=== PATIENT | male | born 1935 | race Caucasian/White ===

== ENCOUNTER 2019-02-22 07:03 | Inpatient (IN) ==
[2019-02-16 13:48] LABS: Appearance,Urine CLEAR; Bilirubin,Urine NEG (NEG); Color,Urine YELLOW; Culture Indicated,Urine NO; Glucose,Urine (UA) NEGATIVE (NEG); Ketones,Urine NEG (NEG); Leukocyte Esterase,Urine NEG /uL (NEG); Nitrate,Urine NEG (NEG); Protein,Urine NEG (NEG); Specific Gravity,Urine 1.023 (1.000-1.035); Urine Blood NEG mg/dL (<0.03); Urobilinogen,Urine NEG (NEG)
[2019-02-16 14:28] LABS: Basophils # (Auto) 0 K/mcL (0.0-0.3); Basophils % (Auto) 0.2 % (0.0-2.0); Eosinophils # (Auto) 0 K/mcL (0.0-0.7); Eosinophils % (Auto) 0.1 % (0.0-7.0); Granulocytes % (Auto) 64.6 % (38.0-78.0); Hematocrit 38.4 % (41.0-55.0); Hemoglobin 12.8 g/dL (13.5-16.5); Lymphocytes # (Auto) 2.3 K/mcL (1.5-4.8); Lymphocytes % (Auto) 28.3 % (15.5-49.0); Mean Cell Volume 93.3 fL (80.0-100.0); Mean Corpuscular HGB Conc 33.3 g/dL (31.0-36.0); Mean Platelet Volume 7.8 fL (7.4-10.4); Monocytes # (Auto) 0.6 K/mcL (0.1-0.9); Monocytes % (Auto) 6.8 % (1.0-12.0); Platelet Count 100 K/mcL (140-440); RBC 4.12 M/mcL (4.50-5.90); Red Cell Distribution Width 15.4 % (11.5-14.5); WBC 8.3 K/mcL (4.5-11.0)
[2019-02-16 14:29] LABS: Blood Urea Nitrogen 22 mg/dl (8-23); Calcium 9.5 mg/dl (8.6-10.4); Carbon Dioxide 22 mmol/L (22-30); Chloride 103 mmol/L (96-108); Glomerular Filtration Rate 83; Glucose 173 mg/dL (70-105)
[2019-02-16 14:51] LABS: Estimated Average Glucose(eAG) 163 mg/dL; Hemoglobin A1C 7.3 % HGB (4.0-6.0)
[~2019-02-22 07:03] MED LIST: CELECOXIB 200 MG CAPSULE PO SCH; IPRATROPIUM/ALBUTEROL 3 ML AMPUL.NEB NEB PRN; PREGABALIN 75 MG CAPSULE PO SCH; SCOPOLAMINE 1 PATCH PATCH TOPICAL PRN; ceFAZolin 2 GM in DEXTROSE 5% IN WATER 50 ML IV SCH; oxyCODONE 10 MG TAB.ER.12H PO SCH
[2019-02-22 07:39] LABS: POC INR 1.3 (0.9-1.2); POC Pro Time 15.5 sec (11.9-14.5)
[2019-02-22] MEDS ORDERED: GLYCOPYRROLATE 0.2 MG/ML VIAL IV ONE (09:30)
[2019-02-22] MEDS ORDERED: LIDOCAINE HCL/PF 100 MG/5 ML SYRINGE IV ONE (09:30)
[2019-02-22] MEDS ORDERED: ROPIVACAINE HCL/PF 30 ML VIAL IJ ONE (09:30)
[2019-02-22] MEDS ORDERED: PHENYLEPHRINE 10 MG/ML VIAL IV ONE (09:30)
[2019-02-22] MEDS ORDERED: fentaNYL 100 MCG/2 ML VIAL IV ONE (09:30)
[2019-02-22] MEDS ORDERED: MIDAZOLAM 2 MG/2 ML VIAL IV ONE (09:30)
[2019-02-22] MEDS ORDERED: TRANEXAMIC ACID 1,000 MG/10 ML VIAL IV ONE ×2 (09:30→11:07)
[2019-02-22] MEDS ORDERED: KETAMINE 100 MG/ML ML IV ONE (09:30)
[2019-02-22] MEDS ORDERED: PROPOFOL 200 MG/20 ML VIAL IV ONE (09:30)
[2019-02-22] MEDS ORDERED: ONDANSETRON 4 MG/2 ML VIAL IV ONE (09:30)
[2019-02-22] MEDS ORDERED: fentaNYL 100 MCG/2 ML VIAL IV PRN (10:56)
[2019-02-22] MEDS ORDERED: IPRATROPIUM/ALBUTEROL 3 ML AMPUL.NEB NEB PRN (10:56)
[2019-02-22] MEDS ORDERED: METHOCARBAMOL 1,000 MG/10 ML VIAL IV PRN (10:56)
[2019-02-22] MEDS ORDERED: HYDROmorphone 2 MG/ML VIAL IV PRN (10:56)
[2019-02-22] MEDS ORDERED: ACETAMINOPHEN 1,000 MG/100 ML BOTTLE IV ONE (10:56)
[2019-02-22] MEDS ORDERED: ONDANSETRON 4 MG/2 ML VIAL IV PRN (10:56)
[2019-02-22] MEDS ORDERED: LACTATED RINGERS 1,000 ML IV SCH (11:00)
[2019-02-22] MEDS ORDERED: NITROGLYCERIN 0.4 MG TAB.SUBL SL PRN (11:06)
--- NOTE | 2019-02-22 11:06 | Brief Operative Note ---
Date of procedure: 02/22/19 Pre-op diagnosis: right hip osteoarthritis Post-op diagnosis: same Procedure: right total hip arthroplasty Grafts/Implants: Yes Anesthesia: GETA Complications: none Surgeon: Winston Dove Bronze Chaser: Kalli Loyd Estimated blood loss (cc): 600 Specimens Removed/Pathology: none sent Condition: stable Disposition: PACU
[2019-02-22] MEDS ORDERED: DEXTROSE 31 GM ORAL.SUSP PO PRN (11:07)
[2019-02-22] MEDS ORDERED: FLEETS ADULT ENEMA PR PRN (11:07)
[2019-02-22] MEDS ORDERED: MAGNESIUM HYDROXIDE 30 ML ORAL.SUSP PO PRN (11:07)
[2019-02-22] MEDS ORDERED: DEXTROSE 50% 50 ML VIAL IV PRN (11:07)
[2019-02-22] MEDS ORDERED: BISACODYL 10 MG SUPP.RECT PR PRN (11:07)
[2019-02-22] MEDS ORDERED: POLYETHYLENE GLYCOL 3350 17 GM PACKET PO PRN (11:07)
[2019-02-22] MEDS ORDERED: METHOCARBAMOL 750 MG TABLET PO PRN (11:07)
[2019-02-22] MEDS ORDERED: BENZOCAINE/MENTHOL 1 LOZENGE PO PRN (11:07)
[2019-02-22] MEDS ORDERED: ONDANSETRON 4 MG ODT TABLET SL PRN (11:07)
[2019-02-22] MEDS ORDERED: GENTAMICIN SULFATE 800 MG/20 ML VIAL IR ONE (11:08)
--- NOTE | 2019-02-22 11:34 | Operative Note ---
DATE OF OPERATION: 02/22/2019 PREOPERATIVE DIAGNOSIS: Degenerative joint disease, right hip. POSTOPERATIVE DIAGNOSIS: Degenerative joint disease, right hip. PROCEDURE: Right total hip arthroplasty. SURGEON: Reed Dove M.D. CONTROLLER [employer] SURGEON: Kalli Loyd PA-C. The PA's assistance was required for the safe and efficient completion of the entire case. This provider's expertise and technical skill were required throughout the case. The PA assisted with preoperative coordination, intraoperative retraction, wound closure, dressing and splint application, as well as postoperative documentation and care coordination. ANESTHESIA: Spinal with LMA assist. ESTIMATED BLOOD LOSS: 600 mL. COMPLICATIONS: None noted. SPECIMENS REMOVED: None. DRAINS: None. IMPLANTS: DePuy Thurman Hole Eliminator PS; DePuy Knox Gription acetabular shell, 58 mm diameter; DePuy Knox Altrx polyethylene acetabular liner, neutral 36 x 58; DePuy femoral stem Actis Duofix hip prosthesis cementless size 6, high-collar; DePuy Biolox delta ceramic femoral head +8.5, 36 mm diameter. INDICATIONS: The patient has had a longstanding history of worsening pain in the hip that has failed conservative treatment. Radiographs have confirmed advanced degenerative joint disease. After a long discussion about treatment options, the patient elected to proceed with a hip arthroplasty. The risks and benefits were discussed with the patient in detail including, but not limited to, the risks of anesthesia, problems with the heart or lungs related to anesthesia, infection, compromise or injury to the nerves and blood vessels, deep venous thrombosis, pulmonary embolism, pneumonia, continued pain after surgery, worsening pain or symptoms after surgery, swelling, loss of motion, instability, leg length discrepancy, and need for repeat surgery. DESCRIPTION OF PROCEDURE: The patient was seen in pre-anesthesia waiting room where all questions were answered and the correct side and site were identified and marked. The patient was then brought to the operating room and administered the anesthetic and given pre-operative antibiotics. A time-out was then called. The patient was placed in the lateral decubitus position with all prominences well-padded using the Jose frame and the extremity was prepped and draped in the usual sterile fashion. Anesthesia gave the patient 1 gm of tranexamic acid via an intravenous route. A standard posterior approach was made. We dissected through the skin and subcutaneous tissue to the deep fascia. The deep fascia was split in line with the incision and a Charnley retractor was placed. We exposed, tagged, and incised the short external rotators and piriformis tendon and retracted them posteriorly to help protect the sciatic nerve which was palpated throughout the case. We then performed a T-capsulotomy and tagged the capsule edges. Prior to dislocating the hip, we set a length and offset gauge from a Steinmann pin in the iliac wing to a ml on the greater trochanter. The hip was then dislocated and a femoral neck osteotomy was performed to the pre-surgical templated level off the lesser trochanter. The head was removed and sized. We next turned our attention to the acetabulum. Retractors were placed for optimal visualization. A complete labral excision was performed. The capsule was preserved for later closure. We began reaming using anatomic landmarks with the DePuy Knox acetabular system. We medialized the cup and reamed up to provide good fill and coverage of the trial. When the trial was stable and appropriately positioned with approximately 20 degrees of anteversion and 45 degrees of abduction, we impacted the DePuy Knox cup and placed a cancellous screw in the posterior-superior quadrant. Osteophytes were removed from around the shell. We placed the trial liner and turned our attention to the femur. We placed retractors for visualization, internally rotated the femur, and established intramedullary access. We broached using the DePuy Actis stem to a stable platform medial, lateral, and rotationally with the appropriate version. We then performed a calcar reaming off the broach. Trials were then placed and optimized for leg length and stability. We used the leg length and offset guide to confirm our trials. Best stability, length, and offset characteristics were obtained with these sizes. We removed all trials and impacted the polyethylene acetabular liner in a standard fashion after a thorough irrigation. We then impacted the femoral stem to its broached location and placed the head. Final reduction was performed. Again, good stability, leg length, and offset characteristics were noted. We irrigated with three liters of antibiotic saline. We closed the capsule with #2 FiberWire. We closed the fascia with a combination of #2 Stratafix and 0 Vicryl. We closed the subcutaneous tissue and skin in layers out to Dermabond on the skin. A sterile pressure dressing and abduction wedge was applied. All needle and sponge counts were correct. The patient was transferred to the recovery room in stable condition. SAGAR:cyril Job ID: [id number] Doc ID: [id number] Reed Dove MD
[2019-02-22] MEDS: MEPERIDINE 25 MG/ML SYRINGE IV PRN ×2 (11:53→12:04)
--- NOTE | 2019-02-22 12:17 | XRay Report ---
HISTORY: Postop right hip replacement FINDINGS: Patient has a newly inserted right total hip prosthesis. This is well-positioned and there is no acute fracture. There is an indwelling well-positioned left hip prosthesis. 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 There is also ankylosis of the right SI joint. The right inferior pubic ramus is deformed by an old healed fracture. IMPRESSION: Well-positioned right hip prosthesis Interpreted and Authenticated by: Reji Cortez 02/22/19
[2019-02-22] MEDS: 0.9 % SODIUM CHLORIDE 1,000 ML IV SCH ×2 (13:02→21:34)
[2019-02-22] MEDS: HYDROcodone/APAP 10/325MG TABLET PO PRN ×2 (13:02→19:54)
[2019-02-22] MEDS: INSULIN LISPRO 1 UNIT/0.01 ML UNIT SQ SCH ×6 (14:34→22:12)
[2019-02-22] MEDS: 0.9 % SODIUM CHLORIDE 10 ML SYRINGE IV SCH ×2 (14:36→22:19)
[2019-02-22] MEDS: ceFAZolin 1 GM VIAL IV SCH (17:28)
[2019-02-22] MEDS: metFORMIN 500 MG TABLET PO SCH (17:58)
[2019-02-22] MEDS: ONDANSETRON 4 MG/2 ML VIAL IV PRN (19:55)
[2019-02-22] MEDS ORDERED: SENNOSIDES 1 TABLET PO SCH (21:00)
[2019-02-22] MEDS ORDERED: ATORVASTATIN 20 MG TABLET PO SCH (21:00)
[2019-02-22] MEDS: ASPIRIN 325 MG ENTERIC COATED TABLET PO SCH (22:11)
[2019-02-22] MEDS: DOCUSATE SODIUM 100 MG CAPSULE PO SCH (22:11)
[2019-02-23] MEDS: ceFAZolin 1 GM VIAL IV SCH (01:56)
[2019-02-23] MEDS: ONDANSETRON 4 MG/2 ML VIAL IV PRN ×3 (02:03→17:26)
[2019-02-23] MEDS: HYDROcodone/APAP 10/325MG TABLET PO PRN ×3 (05:13→16:45)
[2019-02-23] MEDS: 0.9 % SODIUM CHLORIDE 1,000 ML IV SCH ×3 (05:14→20:47)
[2019-02-23] MEDS: 0.9 % SODIUM CHLORIDE 10 ML SYRINGE IV SCH ×3 (06:30→20:48)
[2019-02-23 07:14] LABS: Hematocrit 19.9 % (41.0-55.0); Hemoglobin 6.7 g/dL (13.5-16.5)
[2019-02-23] MEDS: INSULIN LISPRO 1 UNIT/0.01 ML UNIT SQ SCH ×4 (07:31→21:03)
[2019-02-23] MEDS ORDERED: SCOPOLAMINE 1 PATCH PATCH TOPICAL ONE (07:39)
[2019-02-23] MEDS ORDERED: FUROSEMIDE 20 MG/2 ML VIAL IV SCH ×2 (07:40→08:51)
[2019-02-23] MEDS ORDERED: 0.9 % SODIUM CHLORIDE 250 ML IV SCH ×2 (07:45→08:51)
--- NOTE | 2019-02-23 07:50 | Orthopedic Progress Note ---
Subjective Patient information: Note initiated : 02/23/19 at 7:48 am Service Date, if different from initiated Date: [] Patient: Zay Coates 83 y/o M admitted on 02/22/19 for Right Total Hip Arthroplasty Posterior . Chief Complaint: [] Interval history: doing ok but trouble voiding and difficulty ambulating Objective Vital signs: Vital Signs Temp Pulse Resp BP Pulse Ox 02/23/19 03:29 99.1 F H 74 20 115/60 93 02/22/19 23:15 98.3 F 62 16 101/62 94 02/22/19 19:53 98.6 F 101 H 20 118/68 96 02/22/19 16:00 96.2 F L 50 L 18 101/55 02/22/19 15:30 96.4 F L 51 L 18 102/59 94 02/22/19 14:00 52 L 18 106/61 93 02/22/19 13:20 52 L 16 110/56 95 02/22/19 13:05 52 L 16 116/60 96 02/22/19 12:50 52 L 16 120/64 94 02/22/19 12:35 96.2 F L 52 L 16 110/62 94 02/22/19 12:19 97.5 F 54 L 14 127/62 95 02/22/19 12:10 97.3 F 56 L 16 138/62 97 02/22/19 12:00 56 L 16 160/78 94 02/22/19 11:50 58 L 14 123/58 100 02/22/19 11:41 63 14 116/59 100 02/22/19 11:36 55 L 16 100/55 100 02/22/19 11:31 96.4 F L 56 L 14 107/46 100 Intake and Output 02/22/19 02/23/19 02/23/19 21:59 05:59 13:59 Intake Total 1840 1718 Output Total 100 1125 Balance 1740 593 Intake: IV 1000 958 Sodium Chloride 0.9% 1,000 ml @ 1000 958 125 mls/hr IV .Q8H [facility] Rx#: [id number] Oral 840 760 Output: Urine Catheter Amount 375 Straight 375 Void Amount 100 Emesis 750 Other: Meal Dinner Percent of Meal Consumed 25% Urine Appearance Straight Clear Urine Color Dark Yellow Straight Starke # Unmeasured Emesis 1 1 Weight 220 lb Intake & Output: Intake & Output 02/22/19 02/23/19 02/23/19 21:59 05:59 13:59 Intake Total 1840 1718 Output Total 100 1125 Balance 1740 593 Weight 220 lb Intake: IV 1000 958 Sodium Chloride 0.9% 1,000 ml @ 1000 958 125 mls/hr IV .Q8H [facility] Rx#: [id number] Oral 840 760 Output: Urine Catheter Amount 375 Straight 375 Void Amount 100 Emesis 750 Other: Meal Dinner Percent of Meal Consumed 25% Urine Appearance Straight Clear Urine Color Dark Yellow Straight Starke # Unmeasured Emesis 1 1 Incision: Yes healing Incision clean and dry: Yes Dressing: Yes clean, Yes dry, Yes intact Weight bearing status: full Neurological exam IM: Yes abnormal gait, Yes alert, Yes oriented X3, Yes motor sensory intact, Yes neurovascular intact Extremities exam IM: No calf tenderness, Yes Foot pink and warm, Yes neurovascular intact - Labs CBC & BMP: 02/23/19 04:20 02/16/19 11:37 Labs: Orthopedic Labs 02/22/19 02/22/19 07:34 07:32 POC PT 15.5 H POC INR 1.3 H APTT 38 H 02/23/19 02/16/19 04:20 11:37 Hgb 6.7 L* 12.8 L Hct 19.9 L* 38.4 L Assessment and Plan (1) Hip osteoarthritis pod 1 s/p right ronald anemic- transfuse 2 u prbc's hospitalist consult pt pain control dvt prophylaxis Status: Acute
--- NOTE | 2019-02-23 07:51 | Discharge Summary ---
Ortho Discharge - ESTUARDO - Patient Instructions Diet: Regular Diet Activity: ambulate with assistive device, weight bearing as tolerated Total Hip Protocol: Follow activity instructions as provided by Physical Therapy. Dressing Care: May shower in 2 days - Problem Maintenance (1) Hip osteoarthritis Status: Acute - Follow Up Plan Follow Up Appointments: Kalli Loyd PA-C [Physician Historiography Professor] - 03/09/19 11:00 am Disposition: Xfer SNF Prognosis: Good Rehab Potential: Good I certify that the patient requires SNF services: Yes Overall status at discharge: patient is progressing back to baseline
[2019-02-23] MEDS ORDERED: FERROUS SULFATE 325 MG TABLET PO SCH (08:00)
--- NOTE | 2019-02-23 08:28 | Internal Medicine Consult Note ---
Medical - CN: HPI - Data of Consult Primary Care Provider: Kalli Loyd - Consult Narrative Reason for consult: Blood loss anemia History of present illness: Mr. Coates is a 83 year old M with history of DM type II/CAD/CABG who was admitted for elective right hip replacement. Patient underwent right hip arthroplasty on 02/[address] Dove. Postoperatively patient was doing well until he was found to have a hemoglobin dropped to 6.7 early this morning. Patient was started on 2 units transfusion and subsequently hospitalist service was consulted for management of postoperative anemia/prior medical issues At the time of evaluation patient is alert and oriented. He is accompanied with his . He denies significant postoperative pain or swelling around surgery site. He denies diaphoresis lightheadedness except for a brief episode early this morning. He has been ambulating with physical therapy and able to transfer out to chair. He is tolerating diet. Denies shortness of breath, vision changes, diarrhea, fatigue. He is otherwise fairly healthy 83-year-old gentleman who was functional at baseline lives at [place] with his . He is retired teacher. He follows up with primary care physician Dr. erica Leahy cardiology. He denies NSAID intake. He denies history of bleeding or clotting disorder. He is currently on antiplatelets but not on anticoagulation. He denies active symptoms or concerns. Review of systems A 10 point review of system was performed and is negative except as discussed above CC: Winston Dove Medical - CN: [facility] Medical history: History of total right knee replacement (Acute) 03/07/16 Dr. 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 Moran History of coronary artery stent placement (Chronic) 2009 x2 History of prostate surgery (Chronic 10/17/13) Cyber laser- vaporization of the prostate History of total hip replacement (Chronic 05/15/15) Dr. Dove Family History Mother Cardiac disease Arthritis Diabetes mellitus Disorder of thyroid Father Malignant neoplasm of prostate Social History marital status: occupational status: retired occupation: Teacher smoking status: Never smoker alcohol intake frequency: a few times a month substance use type: does not use Medical - CN: Meds Home Medications Medication Instructions Recorded Confirmed Type aspirin 81 mg tablet 81 mg PO DAILY 06/13/15 02/22/19 History OneTouch Delica Lancets 30 gauge See Dose Instructions .ROUTE 09/17/16 10/07/16 Rx .MEDSUPPLY #100 each NS OneTouch Verio See Dose Instructions .ROUTE 09/17/16 10/07/16 Rx .MEDSUPPLY #100 each NS nitroglycerin 0.4 mg sublingual 0.4 mg SUBLINGUAL Q5-15M PRN #20 10/28/16 02/16/19 Rx tablet tab blood-glucose meter See Dose Instructions .ROUTE 12/01/16 Rx .MEDSUPPLY #1 each Ferrous Sulfate 325 mg PO QAC 02/16/19 02/22/19 History Metoprolol Succinate [Toprol Xl] 50 mg PO DAILY 02/16/19 02/22/19 History Rosuvastatin Calcium [Crestor] 20 mg PO DAILY 02/16/19 02/22/19 History metFORMIN [Glucophage] 500 mg PO BIDCC 02/16/19 02/22/19 History Aspirin [Ecotrin] 81 mg PO BID #60 tab.ec 02/23/19 Rx HYDROcodone/APAP 10/325MG [[place] 1 - 2 tab PO Q4H PRN #60 tab 02/23/19 Rx 10-325Mg] Allergies Allergy/AdvReac Type Severity Reaction Status Date / Time No Known Drug Allergies Allergy Verified 10/07/16 11:14 Medical - CN: Exam - Constitutional Vitals: Temp Pulse Resp BP Pulse Ox 98.3 F 79 20 110/64 90 02/23/19 08:00 02/23/19 08:00 02/23/19 08:00 02/23/19 08:00 02/23/19 08:00 General appearance: no acute distress Exam: Alert oriented No anxiety BMI 33.5 Head normocephalic Oral cavity dry No ear nose discharge Mild subconjunctival pallor Neck no lymphadenopathy S1-S2 ESM grade 2 midline sternotomy incisions from prior CABG Diminished breath sounds bases but clear to auscultation Abdomen soft nontender Right lower extremity hip surgical site no significant swelling/erythema/brui sing or tenderness. Normal passive R OM No cyanosis clubbing or lymphedema Skin no suspicious lesion except for pallor psych alert cooperative Neuro nonfocal Medical - CN: Result - Labs CBC & Chem 7: 02/23/19 08:58 02/23/19 08:58 Labs: Short CBC 02/23/19 Range/Units 04:20 Hgb 6.7 L* (13.5-16.5) g/dL Hct 19.9 L* (41.0-55.0) % Medical - CN: A/P (1) Acute blood loss anemia Status: Acute Assessment and plan: * Acute blood loss anemia-postoperative blood loss. Hemoglobin down from 12- 6.7. 2 units PRBC/IV iron sucrose infusion/every 4 H&H. Transfer to monitored unit. Close hemodynamic watch. As needed transfusions * Postop hypotension-continue close monitoring. Transfer to telemetry. Cryst alloids and transfusion as indicated * Right total hip arthroplasty-postop care managed by orthopedics * History of hypertension-continue metoprolol once systolics over 130s * DM type II continue sliding-scale insulin/metformin if renal function stable, start sitagliptin * Postoperative pain management as per orthopedics * Hyperlipidemia continue statin * Full code * Plan * Transfer to telemetry * IV iron sucrose * 2 units PRBC transfusion * Prior medical condition management on home meds * 4 hourly hemoglobin check
[2019-02-23] MEDS: ASPIRIN 325 MG ENTERIC COATED TABLET PO SCH ×3 (08:50→20:46)
[2019-02-23] MEDS: metFORMIN 500 MG TABLET PO SCH ×2 (08:50→17:26)
[2019-02-23] MEDS: DOCUSATE SODIUM 100 MG CAPSULE PO SCH ×3 (08:50→20:46)
[2019-02-23] MEDS ORDERED: POLYETHYLENE GLYCOL 3350 17 GM PACKET PO PRN (08:51)
[2019-02-23] MEDS ORDERED: BENZOCAINE/MENTHOL 1 LOZENGE PO PRN (08:51)
[2019-02-23] MEDS ORDERED: DEXTROSE 31 GM ORAL.SUSP PO PRN (08:51)
[2019-02-23] MEDS ORDERED: MAGNESIUM HYDROXIDE 30 ML ORAL.SUSP PO PRN (08:51)
[2019-02-23] MEDS ORDERED: BISACODYL 10 MG SUPP.RECT PR PRN (08:51)
[2019-02-23] MEDS ORDERED: FLEETS ADULT ENEMA PR PRN (08:51)
[2019-02-23] MEDS ORDERED: DEXTROSE 50% 50 ML VIAL IV PRN (08:51)
[2019-02-23] MEDS ORDERED: NITROGLYCERIN 0.4 MG TAB.SUBL SL PRN (08:51)
[2019-02-23] MEDS ORDERED: METHOCARBAMOL 750 MG TABLET PO PRN (08:51)
[2019-02-23] MEDS ORDERED: sitaGLIPtin 100 MG TABLET PO SCH (09:00)
[2019-02-23] MEDS ORDERED: METOPROLOL SUCCINATE 50 MG TAB.XL.24H PO SCH (09:00)
[2019-02-23 09:32] LABS: Hematocrit 33.1 % (41.0-55.0); Hemoglobin 11.3 g/dL (13.5-16.5); Mean Cell Volume 93.8 fL (80.0-100.0); Mean Corpuscular HGB Conc 34.1 g/dL (31.0-36.0); Mean Platelet Volume 7.2 fL (7.4-10.4); Platelet Count 104 K/mcL (140-440); RBC 3.53 M/mcL (4.50-5.90); Red Cell Distribution Width 15.5 % (11.5-14.5); WBC 12.8 K/mcL (4.5-11.0)
[2019-02-23 09:49] LABS: ALT/SGPT 14 U/l (0-40); AST/SGOT 27 U/l (0-37); Albumin 3.9 gm/dL (3.2-5.2); Albumin/Globulin Ratio 1.3 (1.0-2.3); Alkaline Phosphatase 71 U/L (39-117); Bilirubin,Direct 0.3 mg/dL (0.0-0.3); Bilirubin,Total 1.1 mg/dL (0.0-1.0); Blood Urea Nitrogen 15 mg/dl (8-23); Calcium 8.3 mg/dl (8.6-10.4); Carbon Dioxide 21 mmol/L (22-30); Chloride 101 mmol/L (96-108); Glomerular Filtration Rate 79; Glucose 155 mg/dL (70-105); Lactate Dehydrogenase 225 U/L (94-250); Phosphorous 2.6 mg/dL (2.7-4.5); Triglycerides 89 mg/dl (<150); Uric Acid 3.9 mg/dL (2.5-8.0)
[2019-02-23 10:06] LABS: Band Neutrophils % 18 % (0-10); Lymphocytes % 11 % (15-49); Monocytes % (Manual) 7 % (1-12); Platelet Estimate DECREASED (NORMAL); RBC Morphology NORMAL (NORMAL); Segmented Neutrophils % 64 % (38-78)
[2019-02-23] MEDS ORDERED: IRON SUCROSE COMPLEX 100 MG/5 ML VIAL IV ONE (10:26)
[2019-02-23] MEDS ORDERED: IRON SUCROSE COMPLEX 400 MG in 0.9 % SODIUM CHLORIDE 250 ML IV SCH (11:00)
[2019-02-23 11:54] LABS: Hematocrit 30.3 % (41.0-55.0); Hemoglobin 10.2 g/dL (13.5-16.5)
[2019-02-23] MEDS: SENNOSIDES 1 TABLET PO SCH (20:46)
[2019-02-23] MEDS: ATORVASTATIN 20 MG TABLET PO SCH (20:46)
[2019-02-24] MEDS: 0.9 % SODIUM CHLORIDE 1,000 ML IV SCH ×3 (01:14→19:46)
[2019-02-24] MEDS: HYDROcodone/APAP 10/325MG TABLET PO PRN ×3 (02:48→20:46)
[2019-02-24] MEDS: ONDANSETRON 4 MG/2 ML VIAL IV PRN (02:48)
[2019-02-24] MEDS ORDERED: oxyCODONE/APAP 5/325MG TABLET PO PRN (06:56)
[2019-02-24 06:59] LABS: Hematocrit 28.8 % (41.0-55.0); Hemoglobin 9.8 g/dL (13.5-16.5)
--- NOTE | 2019-02-24 07:00 | Orthopedic Progress Note ---
Subjective Patient information: Note initiated : 02/24/19 at 6:57 am Service Date, if different from initiated Date: [] Patient: Zay Coates 83 y/o M admitted on 02/22/19 for Right Total Hip Arthroplasty Posterior . Chief Complaint: [POD #2 s/p right ESTUARDO Doing well except for urinary retention. Has history of BPH. Is on Flomax. Several attempts at garcia placement have failed. Pain is 7/8 and patient threw up last night. Denies CP, SOB, numbness, tingling, calf pain.] Objective Vital signs: Vital Signs Temp Pulse Resp BP Pulse Ox 02/24/19 03:35 98.4 F 77 16 112/60 92 02/24/19 01:40 98.4 F 78 20 122/62 91 02/23/19 22:41 98.4 F 70 14 108/57 92 02/23/19 18:42 98 F 77 20 108/62 90 02/23/19 16:00 98.2 F 74 18 131/72 90 02/23/19 13:17 106/61 02/23/19 12:00 98.4 F 75 18 90 02/23/19 08:00 98.3 F 79 20 110/64 90 Intake and Output 02/23/19 02/24/19 02/24/19 21:59 05:59 13:59 Intake Total 2000 500 Output Total 1200 75 Balance 800 425 Intake: IV 1000 Sodium Chloride 0.9% 1,000 ml @ 1000 125 mls/hr IV .Q8H [facility] Rx#: [id number] Oral 1000 500 Output: Urine Catheter Amount 600 Straight 600 Void Amount 100 75 Emesis 500 Other: Meal Dinner 1 slice toast Percent of Meal Consumed 25% 100% Urine Appearance Straight Clear Urine Color Dark Poppy Straight Light Poppy Urine Odor Straight Strong Weight 221 lb 9.6 oz Intake & Output: Intake & Output 02/23/19 02/24/19 02/24/19 21:59 05:59 13:59 Intake Total 2000 500 Output Total 1200 75 Balance 800 425 Weight 221 lb 9.6 oz Intake: IV 1000 Sodium Chloride 0.9% 1,000 ml @ 1000 125 mls/hr IV .Q8H [facility] Rx#: [id number] Oral 1000 500 Output: Urine Catheter Amount 600 Straight 600 Void Amount 100 75 Emesis 500 Other: Meal Dinner 1 slice toast Percent of Meal Consumed 25% 100% Urine Appearance Straight Clear Urine Color Dark Poppy Straight Light Poppy Urine Odor Straight Strong Incision: Yes healing, No draining, No red, No swollen, No inflamed, Yes clean and dry Incision clean and dry: Yes Dressing: Yes clean, Yes dry, Yes intact Weight bearing status: as tolerated Neurological exam IM: Yes alert, Yes oriented X3, Yes motor sensory intact, Yes neurovascular intact Extremities exam IM: Yes Foot pink and warm, Yes neurovascular intact - Periperhal Pulses Peripheral pulses: 2+: dorsalis pedis (L), dorsalis pedis (R), posterior tibiali s (L), posterior tibialis (R) - Labs CBC & BMP: 02/23/19 11:20 02/23/19 08:58 Labs: Orthopedic Labs 02/22/19 02/22/19 07:34 07:32 POC PT 15.5 H POC INR 1.3 H APTT 38 H 02/24/19 02/23/19 02/23/19 04:25 11:20 08:58 Hgb Pending 10.2 L 11.3 L Hct Pending 30.3 L 33.1 L 02/23/19 02/16/19 04:20 11:37 Hgb 6.7 L* 12.8 L Hct 19.9 L* 38.4 L Assessment and Plan (1) Hip osteoarthritis POD #2 s/p right ESTUARDO: -protonix for GERD -consult to [facility] for urinary retention -pain control: d/c Hydrocodone and switch to Percocet to see if tolerated better. Zofran prn -ambulate as tolerate -d/c planning to SNF tomorrow Status: Acute
[2019-02-24] MEDS: ONDANSETRON 4 MG ODT TABLET SL PRN ×2 (07:01→20:45)
[2019-02-24] MEDS: 0.9 % SODIUM CHLORIDE 10 ML SYRINGE IV SCH ×3 (07:07→20:47)
[2019-02-24] MEDS: PANTOPRAZOLE 40 MG TABLET PO SCH (07:20)
[2019-02-24] MEDS: INSULIN LISPRO 1 UNIT/0.01 ML UNIT SQ SCH ×4 (07:22→20:44)
[2019-02-24] MEDS: FERROUS SULFATE 325 MG TABLET PO SCH (09:08)
[2019-02-24] MEDS: sitaGLIPtin 100 MG TABLET PO SCH (09:08)
[2019-02-24] MEDS: metFORMIN 500 MG TABLET PO SCH ×2 (09:09→17:17)
[2019-02-24] MEDS: DOCUSATE SODIUM 100 MG CAPSULE PO SCH ×2 (09:09→20:46)
[2019-02-24] MEDS: METOPROLOL SUCCINATE 50 MG TAB.XL.24H PO SCH (09:09)
[2019-02-24] MEDS: ASPIRIN 325 MG ENTERIC COATED TABLET PO SCH ×2 (09:09→20:46)
--- NOTE | 2019-02-24 09:50 | Internal Med Progress Note ---
Medical - PN: Subj Patient information: Note initiated : 02/24/19 at 9:45 am Service Date, if different from initiated Date: [] Patient: Zay Coates 83 y/o M admitted on 02/22/19 for Right Total Hip Arthroplasty Posterior . Chief Complaint: [] Interval history: Mr. Coates is a 83 year old M with history of DM type II/CAD/CABG who was admitted for elective right hip replacement. Patient underwent right hip arthroplasty on 02/[address] Dove. Postoperatively patient was doing well until he was found to have a hemoglobin dropped to 6.7 early this morning. Patient was started on 2 units transfusion and subsequently hospitalist service was consulted for management of postoperative anemia/prior medical issues At the time of evaluation patient is alert and oriented. He is accompanied with his . He denies significant postoperative pain or swelling around surgery site. He denies diaphoresis lightheadedness except for a brief episode early this morning. He has been ambulating with physical therapy and able to transfer out to chair. He is tolerating diet. Denies shortness of breath, vision changes, diarrhea, fatigue. He is otherwise fairly healthy 83-year-old gentleman who was functional at baseline lives at [place] with his . He is retired teacher. He follows up with primary care physician Dr. erica Leahy cardiology. He denies NSAID intake. He denies history of bleeding or clotting disorder. He is currently on antiplatelets but not on anticoagulation. He denies active symptoms or concerns. 02/24-patient complains of distended abdomen and difficulty urinating. History of BPH. Attempted Yao's catheter twice by nurses and failed. Urology consulted for catheterization. Blood transfusion canceled in light of lab error showing low hemoglobin. Patient otherwise stable the postoperative phase. No significant postop pain. Family at bedside. Anticipate discharge to SNF in 24 hours. - Constitutional Vitals: Vital Signs Temp Pulse Resp BP Pulse Ox 98.3 F 80 16 117/62 93 02/24/19 08:00 02/24/19 08:00 02/24/19 08:00 02/24/19 08:00 02/24/19 08:00 Period Temp Pulse Resp BP Sys/Aaron Pulse Ox Last 24 Hr 98 F-98.4 F 70-80 14-20 106-131/57-72 90-93 Intake and Output 02/23/19 02/24/19 02/24/19 21:59 05:59 13:59 Intake Total 1999 500 Output Total 1200 75 Balance 800 425 Weight 221 lb 9.6 oz Intake & Output: Intake & Output 02/23/19 02/24/19 02/24/19 21:59 05:59 13:59 Intake Total 1999 500 Output Total 1200 75 Balance 800 425 Weight 221 lb 9.6 oz Intake: IV 1000 Sodium Chloride 0.9% 1,000 ml @ 1000 125 mls/hr IV .Q8H [facility] Rx#: [id number] Oral 1000 500 Output: Urine Catheter Amount 600 Straight 600 Void Amount 100 75 Emesis 500 Other: Meal Dinner 1 slice toast Percent of Meal Consumed 25% 100% Urine Appearance Straight Clear Urine Color Dark Poppy Straight Light Poppy Urine Odor Straight Strong General appearance: no acute distress Exam: Distended abdomen Nonlabored breathing Minimal anxiety Medical - PN: Obj Da - Labs CBC & Chem 7: 02/24/19 04:25 02/23/19 08:58 Labs: Abnormal Lab Results 02/24/19 02/23/19 02/23/19 04:25 11:20 08:58 WBC RBC Hgb 9.8 L 10.2 L Hct 28.8 L 30.3 L RDW Plt Count MPV Band Neutrophils % Lymphocytes % Platelet Estimate POC PT POC INR APTT Carbon Dioxide 21 L Glucose 155 H Calcium 8.3 L Phosphorus 2.6 L Total Bilirubin 1.1 H 02/23/19 02/23/19 02/22/19 08:58 04:20 07:34 WBC 12.8 H RBC 3.53 L Hgb 11.3 L 6.7 L* Hct 33.1 L 19.9 L* RDW 15.5 H Plt Count 104 L MPV 7.2 L Band Neutrophils % 18 H Lymphocytes % 11 L Platelet Estimate Decreased A POC PT 15.5 H POC INR 1.3 H APTT Carbon Dioxide Glucose Calcium Phosphorus Total Bilirubin 02/22/19 07:32 WBC RBC Hgb Hct RDW Plt Count MPV Band Neutrophils % Lymphocytes % Platelet Estimate POC PT POC INR APTT 38 H Carbon Dioxide Glucose Calcium Phosphorus Total Bilirubin Meds: Medications Hydrocodone Bitart/Acetaminophen ([place] 10/325mg) 0 tab PO Q4HP PRN PRN Reason: PAIN LEVEL 3-6 Last Admin: 02/24/19 07:01 Dose: 2 tab Documented by: Aspirin (Ecotrin) 325 mg PO BID [facility] Last Admin: 02/24/19 09:09 Dose: 325 mg Documented by: Atorvastatin Calcium (Lipitor) 40 mg PO HS [facility] Last Admin: 02/23/19 20:46 Dose: 40 mg Documented by: Bisacodyl (Dulcolax) 10 mg [place] Q2-3DAYS PRN PRN Reason: Constipation Dextrose (Dextrose 50%) 0 ml IV UD PRN PRN Reason: Hypoglycemia Diagnostic Test (Pha) (Accu-Chek) 1 each FS [facility] Last Admin: 02/24/19 07:20 Dose: 1 each Documented by: Docusate Sodium (Colace) 100 mg PO BID [facility] Last Admin: 02/24/19 09:09 Dose: 100 mg Documented by: Ferrous Sulfate (Ferrous Sulfate) 325 mg PO [facility] Last Admin: 02/24/19 09:08 Dose: 325 mg Documented by: Glucose (Insta-Glucose) 15 gm PO PRN PRN PRN Reason: Hypoglycemia Sodium Chloride (Sodium Chloride 0.9%) 1,000 mls @ 125 mls/hr IV .Q8H [facility] Last Admin: 02/24/19 01:14 Dose: 125 mls/hr Documented by: Insulin Human Lispro (Humalog) 0 unit SQ [facility]; Protocol Last Admin: 02/24/19 07:22 Dose: 2 units Documented by: Magnesium Hydroxide (Milk Of Magnesia) 30 ml PO BIDP PRN PRN Reason: Constipation [facility] Last Admin: 02/24/19 09:09 Dose: 500 mg Documented by: Methocarbamol (Robaxin) 750 mg PO Q6HP PRN PRN Reason: Muscle Spasm Last Admin: 02/23/19 16:45 Dose: 750 mg Documented by: Metoprolol Succinate (Toprol Xl) 50 mg PO DAILY [facility] Last Admin: 02/24/19 09:09 Dose: Not Given Documented by: Morphine Sulfate (Morphine) 0 mg IV Q1HP PRN PRN Reason: PAIN LEVEL > 6 Last Admin: 02/23/19 21:04 Dose: 2 mg Documented by: Nitroglycerin (Nitrostat) 0.4 mg SL Q5M PRN PRN Reason: chest pain Ondansetron HCl (Zofran) 4 mg IV Q4HP PRN PRN Reason: Nausea And Vomiting Last Admin: 02/24/19 02:48 Dose: 4 mg Documented by: Ondansetron HCl (Zofran Odt) 4 mg SL Q4HP PRN PRN Reason: Nausea And Vomiting Last Admin: 02/24/19 07:01 Dose: 4 mg Documented by: Oxycodone/Acetaminophen (Percocet 5-325 Mg) 1 tab PO Q4-6HP PRN PRN Reason: PAIN LEVEL 3-6 Pantoprazole Sodium (Protonix) 40 mg PO QAMAC [facility] Last Admin: 02/24/19 07:20 Dose: 40 mg Documented by: Polyethylene Glycol (Miralax) 17 gm PO DAILYP PRN PRN Reason: Constipation Senna (Senokot) 2 tab PO HS [facility] Last Admin: 02/23/19 20:46 Dose: 2 tab Documented by: Sitagliptin Phosphate (Januvia) 100 mg PO DAILY [facility] Last Admin: 02/24/19 09:08 Dose: 100 mg Documented by: Sodium Biphosphate/Sodium Phosphate (Fleets Adult) 1 dose [place] Q3-4DAYS PRN PRN Reason: Constipation Sodium Chloride (Saline Flush) 10 ml IV Q8 [facility] Last Admin: 02/24/19 07:07 Dose: Not Given Documented by: Throat Lozenges (Cepacol) 1 lozenge PO PRN PRN PRN Reason: Sore Throat Medical - PN: A/P - Time Spent With Patient Total time spent is greater than 50% in coordination of care (as documented) at patient's floor/unit and/or counseling patient: 15 - 24 minutes (1) Acute blood loss anemia Status: Acute Assessment and plan: * Postop [id number] and resolved. * Urinary retention-urology consulted for Yao's insertion * Postop anemia-IV iron infusion * Right total hip arthroplasty-postop care ongoing per orthopedics, PT OT * History of hypertension-stable on metoprolol * DM type II continue sliding-scale insulin, metformin/sitagliptin. A.m. blood sugar 155 * Postoperative pain management well controlled * Hyperlipidemia continue statin * Prophylaxis on twice daily aspirin per orthopedics * Full code Plan * Urology consult * IV iron sucrose * Prior medical condition management and home meds * No further recommendations from hospitalist service Current Visit: Yes Medical - PN: Qual - VTE Deep Vein Thrombosis/Pulmonary Embolism Present on Admission: No
--- NOTE | 2019-02-24 11:17 | General Surgery Progress Note ---
Surgical - Auxillary Note - Subjective Patient Information: Note initiated : 02/24/19 at 11:15 am Service Date, if different from initiated Date: [] Patient: Zay Coates 83 y/o M admitted on 02/22/19 for Right Total Hip Arthroplasty Posterior . Chief Complaint: [] full consult dictatated. garcia placed. start flomax. f/u as outpatient
--- NOTE | 2019-02-24 11:39 | Consultation ---
DATE OF CONSULTATION: 02/24/2019 REQUESTING PHYSICIAN: Giovanny Chamberlain MD. HISTORY OF PRESENT ILLNESS: The patient is an 83-year-old gentleman who recently had right hip surgery. Postoperatively, he could not urinate, and the nurses tried four times to place a catheter. I was contacted and was able to place a catheter without difficulty. The patient does have a history of BPH. He has undergone a photovaporization with [employer] approximately 5 years ago. He is on no medications for his prostate. He states that the surgery lasted about a year and then has started to have problems. He has more frequency and urgency and does not really feel like he empties his bladder. He has a decreased force of stream. Again, he is on no medication. He presents now for evaluation. PAST MEDICAL HISTORY: Please see dictation from Dr. Chamberlain on 02/23/2019. PAST SURGICAL HISTORY: Colonoscopy, coronary artery stent placement, bilateral hip replacements. FAMILY HISTORY: Cardiac disease. Father with prostate cancer. SOCIAL HISTORY: , retired teacher, does not smoke. CURRENT MEDICATIONS: 1. Nitroglycerin as needed. 2. Metoprolol. 3. Crestor. 4. Glucophage. 5. Ecotrin. ALLERGIES: No known allergies. REVIEW OF SYSTEMS: Again, please see Dr. Chamberlain's dictation. PHYSICAL EXAMINATION: GENERAL: This is a pleasant gentleman in slight distress. VITAL SIGNS: As listed per nurse's notes. NECK: Supple. Trachea is midline. HEART: Regular rate and rhythm. LUNGS: Clear to auscultation. ABDOMEN: Soft, positive distended bladder. No masses are felt. GENITOURINARY: Normal male phallus, circumcised. Meatus at the end of his penis. No discharge. Scrotum was without lesion. No hydrocele, no varicocele. Testicles normal size and consistency. Prostate is 45 grams, smooth, no nodules. Seminal vesicles are without enlargement. Good sphincter tone. No inner rectal masses. IMPRESSION: Urinary retention postoperatively. I was able to place a 16-Dutch Yao catheter without difficulty. He drained about 600 mL of urine and is feeling much better. I would keep the catheter in and start him on Flomax. He is going to a care center for rehabilitation. They can take out the catheter in about a week. We will then follow up in the office and see how he is doing. If there is a problem, he can give me a call. MARSHALL:cyril Job ID: [id number] Doc ID: [id number] Tino Amor MD
[2019-02-24] MEDS: ATORVASTATIN 20 MG TABLET PO SCH (20:46)
[2019-02-24] MEDS: SENNOSIDES 1 TABLET PO SCH (20:46)
[2019-02-24] MEDS ORDERED: TAMSULOSIN 0.4 MG CAPSULE PO SCH (21:00)
[2019-02-25] MEDS: 0.9 % SODIUM CHLORIDE 1,000 ML IV SCH ×2 (03:40→08:32)
[2019-02-25 05:43] LABS: Hemoglobin 9.4 g/dL (13.5-16.5)
[2019-02-25] MEDS: 0.9 % SODIUM CHLORIDE 10 ML SYRINGE IV SCH (05:49)
[2019-02-25] MEDS: INSULIN LISPRO 1 UNIT/0.01 ML UNIT SQ SCH ×2 (07:05→11:27)
[2019-02-25] MEDS: PANTOPRAZOLE 40 MG TABLET PO SCH (07:05)
--- NOTE | 2019-02-25 07:20 | Orthopedic Progress Note ---
Subjective Patient information: Note initiated : 02/25/19 at 7:19 am Service Date, if different from initiated Date: [] Patient: Zay Coates 83 y/o M admitted on 02/22/19 for Right Total Hip Arthroplasty Posterior . Chief Complaint: [] Interval history: doing well. feeling better Objective Vital signs: Vital Signs Temp Pulse Resp BP Pulse Ox 02/25/19 03:41 97.7 F 76 16 118/64 94 02/24/19 22:37 98.2 F 77 16 112/60 92 02/24/19 18:50 99.1 F H 86 14 114/61 94 02/24/19 16:00 97.4 F 78 16 105/64 92 02/24/19 12:00 97.0 F 83 16 107/65 94 02/24/19 08:00 98.3 F 80 16 117/62 93 Intake and Output 02/24/19 02/25/19 02/25/19 21:59 05:59 13:59 Intake Total 240 400 Output Total 800 800 Balance -560 -400 Intake: Oral 240 400 Output: Urine Catheter Amount 800 800 Other: Meal Breakfast Percent of Meal Consumed 75% Feeding Ability Independent Urine Appearance Clear Uretheral (Yao) Clear Urine Color Dark Yellow Uretheral (Yao) Dark Yellow Weight 224 lb 3.2 oz Intake & Output: Intake & Output 02/24/19 02/25/19 02/25/19 21:59 05:59 13:59 Intake Total 240 400 Output Total 800 800 Balance -560 -400 Weight 224 lb 3.2 oz Intake: Oral 240 400 Output: Urine Catheter Amount 800 800 Other: Meal Breakfast Percent of Meal Consumed 75% Feeding Ability Independent Urine Appearance Clear Uretheral (Yao) Clear Urine Color Dark Yellow Uretheral (Yao) Dark Yellow Incision: Yes healing Incision clean and dry: Yes Dressing: Yes clean, Yes dry, Yes intact Weight bearing status: full Neurological exam IM: Yes abnormal gait, Yes alert, Yes oriented X3, Yes motor sensory intact, Yes neurovascular intact Extremities exam IM: No calf tenderness, Yes Foot pink and warm, Yes neurovascular intact - Labs CBC & BMP: 02/25/19 04:00 02/23/19 08:58 Labs: Orthopedic Labs 02/22/19 02/22/19 07:34 07:32 POC PT 15.5 H POC INR 1.3 H APTT 38 H 02/25/19 02/24/19 02/23/19 04:00 04:25 11:20 Hgb 9.4 L 9.8 L 10.2 L Hct 27.0 L 28.8 L 30.3 L 02/23/19 02/23/19 02/16/19 08:58 04:20 11:37 Hgb 11.3 L 6.7 L* 12.8 L Hct 33.1 L 19.9 L* 38.4 L Assessment and Plan (1) Hip osteoarthritis pod 3 s/p right [facility] today pt pain control dvt prophylaxis Status: Acute
[2019-02-25] MEDS: sitaGLIPtin 100 MG TABLET PO SCH (08:31)
[2019-02-25] MEDS: ASPIRIN 325 MG ENTERIC COATED TABLET PO SCH (08:31)
[2019-02-25] MEDS: metFORMIN 500 MG TABLET PO SCH (08:31)
[2019-02-25] MEDS: HYDROcodone/APAP 10/325MG TABLET PO PRN (08:31)
[2019-02-25] MEDS: METOPROLOL SUCCINATE 50 MG TAB.XL.24H PO SCH (08:31)
[2019-02-25] MEDS: DOCUSATE SODIUM 100 MG CAPSULE PO SCH (08:31)
[2019-02-25] MEDS: FERROUS SULFATE 325 MG TABLET PO SCH (08:31)
--- NOTE | 2019-02-25 09:43 | Internal Med Progress Note ---
Medical - PN: Subj Patient information: Note initiated : 02/25/19 at 9:40 am Service Date, if different from initiated Date: [] Patient: Zay Coates 83 y/o M admitted on 02/22/19 for Right Total Hip Arthroplasty Posterior . Chief Complaint: [] Interval history: Mr. Coates is a 83 year old M with history of DM type II/CAD/CABG who was admitted for elective right hip replacement. Patient underwent right hip arthroplasty on 02/[address] Dove. Postoperatively patient was doing well until he was found to have a hemoglobin dropped to 6.7 early this morning. Patient was started on 2 units transfusion and subsequently hospitalist service was consulted for management of postoperative anemia/prior medical issues At the time of evaluation patient is alert and oriented. He is accompanied with his . He denies significant postoperative pain or swelling around surgery site. He denies diaphoresis lightheadedness except for a brief episode early this morning. He has been ambulating with physical therapy and able to transfer out to chair. He is tolerating diet. Denies shortness of breath, vision changes, diarrhea, fatigue. 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 erica Leahy cardiology. He denies NSAID intake. He denies history of bleeding or clotting disorder. He is currently on antiplatelets but not on anticoagulation. He denies active symptoms or concerns. 02/24-patient complains of distended abdomen and difficulty urinating. History of BPH. Attempted Yao's catheter twice by nurses and failed. Urology consulted for catheterization. Blood transfusion canceled in light of lab error showing low hemoglobin. Patient otherwise stable the postoperative phase. No significant postop pain. Family at bedside. Anticipate discharge to SNF in 24 hours. 02/25-patient doing well. Yao's catheter in place. No overnight fever chills. No concerns per nursing staff. Will follow-up with urology/orthopedics as outpatient. - Constitutional Vitals: Vital Signs Temp Pulse Resp BP Pulse Ox 98 F 76 20 119/70 94 02/25/19 07:21 02/25/19 07:00 02/25/19 07:21 02/25/19 07:21 02/25/19 07:21 Period Temp Pulse Resp BP Sys/Aaron Pulse Ox Last 24 Hr 97.0 F-99.1 F 76-86 14-20 105-119/60-70 92-94 Intake and Output 02/24/19 02/25/19 02/25/19 21:59 05:59 13:59 Intake Total 240 400 480 Output Total 800 800 Balance -560 -400 480 Weight 224 lb 3.2 oz Intake & Output: Intake & Output 02/24/19 02/25/19 02/25/19 21:59 05:59 13:59 Intake Total 240 400 480 Output Total 800 800 Balance -560 -400 480 Weight 224 lb 3.2 oz Intake: Oral 240 400 480 Output: Urine Catheter Amount 800 800 Other: Meal Breakfast Breakfast Percent of Meal Consumed 75% 100% Feeding Ability Independent Independent Urine Appearance Clear Uretheral (Yao) Clear Clear Urine Color Dark Yellow Uretheral (Yao) Dark Yellow Dark Yellow Urine Odor Uretheral (Yao) Normal General appearance: no acute distress Exam: Yao draining clear urine No significant postoperative site pain or swelling Nonlabored breathing Medical - PN: Obj Da - Labs CBC & Chem 7: 02/25/19 04:00 02/23/19 08:58 Labs: Abnormal Lab Results 02/25/19 02/24/19 02/23/19 04:00 04:25 11:20 WBC RBC Hgb 9.4 L 9.8 L 10.2 L Hct 27.0 L 28.8 L 30.3 L RDW Plt Count MPV Band Neutrophils % Lymphocytes % Platelet Estimate Carbon Dioxide Glucose Calcium Phosphorus Total Bilirubin 02/23/19 02/23/19 02/23/19 08:58 08:58 04:20 WBC 12.8 H RBC 3.53 L Hgb 11.3 L 6.7 L* Hct 33.1 L 19.9 L* RDW 15.5 H Plt Count 104 L MPV 7.2 L Band Neutrophils % 18 H Lymphocytes % 11 L Platelet Estimate Decreased A Carbon Dioxide 21 L Glucose 155 H Calcium 8.3 L Phosphorus 2.6 L Total Bilirubin 1.1 H Meds: Medications Hydrocodone Bitart/Acetaminophen ([place] 10/325mg) 0 tab PO Q4HP PRN PRN Reason: PAIN LEVEL 3-6 Last Admin: 02/25/19 08:31 Dose: 2 tab Documented by: Aspirin (Ecotrin) 325 mg PO BID [facility] Last Admin: 02/25/19 08:31 Dose: 325 mg Documented by: Atorvastatin Calcium (Lipitor) 40 mg PO HS [facility] Last Admin: 02/24/19 20:46 Dose: 40 mg Documented by: Bisacodyl (Dulcolax) 10 mg [place] Q2-3DAYS PRN PRN Reason: Constipation Dextrose (Dextrose 50%) 0 ml IV UD PRN PRN Reason: Hypoglycemia Diagnostic Test (Pha) (Accu-Chek) 1 each FS [facility] Last Admin: 02/25/19 07:05 Dose: 1 each Documented by: Docusate Sodium (Colace) 100 mg PO BID [facility] Last Admin: 02/25/19 08:31 Dose: 100 mg Documented by: Ferrous Sulfate (Ferrous Sulfate) 325 mg PO [facility] Last Admin: 02/25/19 08:31 Dose: 325 mg Documented by: Glucose (Insta-Glucose) 15 gm PO PRN PRN PRN Reason: Hypoglycemia Sodium Chloride (Sodium Chloride 0.9%) 1,000 mls @ 125 mls/hr IV .Q8H [facility] Last Admin: 02/25/19 08:32 Dose: Not Given Documented by: Insulin Human Lispro (Humalog) 0 unit SQ [facility]; Protocol Last Admin: 02/25/19 07:05 Dose: 2 units Documented by: Magnesium Hydroxide (Milk Of Magnesia) 30 ml PO BIDP PRN PRN Reason: Constipation [facility] Last Admin: 02/25/19 08:31 Dose: 500 mg Documented by: Methocarbamol (Robaxin) 750 mg PO Q6HP PRN PRN Reason: Muscle Spasm Last Admin: 02/23/19 16:45 Dose: 750 mg Documented by: Metoprolol Succinate (Toprol Xl) 50 mg PO DAILY [facility] Last Admin: 02/25/19 08:31 Dose: 50 mg Documented by: Morphine Sulfate (Morphine) 0 mg IV Q1HP PRN PRN Reason: PAIN LEVEL > 6 Last Admin: 02/23/19 21:04 Dose: 2 mg Documented by: Nitroglycerin (Nitrostat) 0.4 mg SL Q5M PRN PRN Reason: chest pain Ondansetron HCl (Zofran) 4 mg IV Q4HP PRN PRN Reason: Nausea And Vomiting Last Admin: 02/24/19 02:48 Dose: 4 mg Documented by: Ondansetron HCl (Zofran Odt) 4 mg SL Q4HP PRN PRN Reason: Nausea And Vomiting Last Admin: 02/24/19 20:45 Dose: 4 mg Documented by: Oxycodone/Acetaminophen (Percocet 5-325 Mg) 1 tab PO Q4-6HP PRN PRN Reason: PAIN LEVEL 3-6 Pantoprazole Sodium (Protonix) 40 mg PO QAMAC [facility] Last Admin: 02/25/19 07:05 Dose: 40 mg Documented by: Polyethylene Glycol (Miralax) 17 gm PO DAILYP PRN PRN Reason: Constipation Senna (Senokot) 2 tab PO [facility] Last Admin: 02/24/19 20:46 Dose: 2 tab Documented by: Sitagliptin Phosphate (Januvia) 100 mg PO DAILY [facility] Last Admin: 02/25/19 08:31 Dose: 100 mg Documented by: Sodium Biphosphate/Sodium Phosphate (Fleets Adult) 1 dose [place] Q3-4DAYS PRN PRN Reason: Constipation Sodium Chloride (Saline Flush) 10 ml IV Q8 [facility] Last Admin: 02/25/19 05:49 Dose: 10 ml Documented by: Tamsulosin HCl (Flomax) 0.4 mg PO [facility] Last Admin: 02/24/19 20:46 Dose: 0.4 mg Documented by: Throat Lozenges (Cepacol) 1 lozenge PO PRN PRN PRN Reason: Sore Throat Medical - PN: A/P - Time Spent With Patient Total time spent is greater than 50% in coordination of care (as documented) at patient's floor/unit and/or counseling patient: 15 - 24 minutes (1) Acute blood loss anemia Status: Acute Assessment and plan: * Urinary retention-status post Yao's catheter placement by urology. Patient will follow-up urology as outpatient * Postop anemia-status post IV iron infusion * Postop [id number]. Resolved * Right total hip arthroplasty-managed per orthopedics. Likely discharge today with outpatient orthopedic follow-up * History of hypertension-stable on metoprolol * DM type II continue sliding-scale insulin, metformin/sitagliptin. Blood sugars at goal * Postoperative pain management well controlled * Hyperlipidemia continue statin * Prophylaxis on twice daily aspirin per orthopedics * Full code Plan * No further recommendations from hospitalist service * Outpatient urology follow-up on discharge * Prior medical condition management and home meds Current Visit: Yes Medical - PN: Qual - VTE Deep Vein Thrombosis/Pulmonary Embolism Present on Admission: No
== END 2019-02-25 11:45 | DRG 470 ==
LOC: MEDSUR 07:03
PROVIDERS: ADMIT Orthopaedic Surgery Sports Medicine; ATTEND Orthopaedic Surgery Sports Medicine

== ENCOUNTER 2024-03-02 15:01 | Inpatient (IN) ==
[2024-03-02] MEDS ORDERED: IOPAMIDOL 100 ML BOTTLE IV ONE (15:02)
[2024-03-02] MEDS: ONDANSETRON 4 MG/2 ML VIAL IV ONE (15:54)
[2024-03-02] MEDS: 0.9 % SODIUM CHLORIDE 1,000 ML IV ONE (15:54)
[2024-03-02] MEDS: morphine 2 MG/ML VIAL IV PRN (16:09)
[2024-03-02] MEDS: ASPIRIN 81 MG TAB.CHEW CHEWED ONE (16:12)
[2024-03-02 16:28] LABS: Basophils # (Auto) 0.01 K/mcL (0.00-0.30); Basophils % (Auto) 0.1 % (0.0-2.0); Eosinophils # (Auto) 0.01 K/mcL (0.00-0.70); Eosinophils % (Auto) 0.1 % (0.0-7.0); Hematocrit 33.6 % (40.1-51.0); Hemoglobin 10.8 g/dL (13.7-17.5); Lymphocytes # (Auto) 2.61 K/mcL (1.50-4.80); Mean Cell Volume 93.3 fL (80.0-100.0); Mean Corpuscular HGB Conc 32.1 g/dL (31.0-36.0); Mean Platelet Volume 9.5 fL (8.8-12.5); Monocytes # (Auto) 0.54 K/mcL (0.10-0.90); Monocytes % (Auto) 6.4 % (1.0-12.0); Platelet Count 75 K/mcL (140-440); Red Cell Distribution Width 15.4 % (11.5-14.5); WBC 8.4 K/mcL (4.5-11.0)
[2024-03-02 16:31] LABS: ALT/SGPT 32 U/L (<40); AST/SGOT 47 U/L (<40); Albumin 4.2 gm/dL (3.2-5.2); Albumin/Globulin Ratio 1.2 (1.0-2.3); Alkaline Phosphatase 106 U/L (39-117); Bilirubin,Total 0.6 mg/dL (0.1-1.0); Blood Urea Nitrogen 20 mg/dL (8-23); Calcium 9.4 mg/dL (8.6-10.4); Carbon Dioxide 22 mmol/L (22-30); Chloride 103 mmol/L (96-108); Globulin 3.4 gm/dL (2.2-3.7); Glomerular Filtration Rate 85; Glucose 147 mg/dL (70-105); Potassium 4.1 mmol/L (3.3-5.1); Sodium 138 mmol/L (133-145)
[2024-03-02 18:25] LABS: Appearance,Urine Clear (Clear); Bacteria,Urine 0 /hpf (0); Bilirubin,Urine Negative (Negative); Color,Urine Yellow; Glucose,Urine (UA) Negative (Negative); Ketones,Urine Negative (Negative); Leukocyte Esterase,Urine Negative /uL (Negative); Nitrate,Urine Negative (Negative); PH,Urine 5.5 (5.0-9.0); Protein,Urine Negative (Negative); Urine Blood Negative ery/mcL (Negative); Urine RBC 0 /hpf (0-3); Urine Squamous Epithelial Cell 0 /hpf (0-4); Urine WBC 0 /hpf (0-4); Urobilinogen,Urine Normal
[2024-03-02] MEDS ORDERED: DEXTROSE 31 GM ORAL.SUSP PO PRN (20:29)
[2024-03-02] MEDS ORDERED: DEXTROSE 50% 50 ML VIAL IV PRN (20:29)
[2024-03-02] MEDS: PIPERACILLIN SODIUM/TAZOBACTAM 3.375 GM in DEXTROSE 5% IN WATER 100 ML IV SCH (21:19)
[2024-03-02] MEDS: INSULIN LISPRO 1 UNIT/0.01 ML UNIT SQ SCH (22:09)
[2024-03-02] MEDS: 0.9 % SODIUM CHLORIDE 1,000 ML IV SCH (23:54)
[2024-03-03 07:01] LABS: Basophils # (Auto) 0.01 K/mcL (0.00-0.30); Basophils % (Auto) 0.1 % (0.0-2.0); Eosinophils # (Auto) 0.01 K/mcL (0.00-0.70); Eosinophils % (Auto) 0.1 % (0.0-7.0); Hematocrit 31.7 % (40.1-51.0); Lymphocytes # (Auto) 1.51 K/mcL (1.50-4.80); Lymphocytes % (Auto) 21.2 % (15.5-49.0); Mean Cell Volume 95.5 fL (80.0-100.0); Mean Corpuscular HGB Conc 31.5 g/dL (31.0-36.0); Mean Platelet Volume 9.9 fL (8.8-12.5); Monocytes # (Auto) 0.49 K/mcL (0.10-0.90); Monocytes % (Auto) 6.9 % (1.0-12.0); Neutrophils % (Auto) 71.1 % (38.0-78.0); Platelet Count 69 K/mcL (140-440); RBC 3.32 M/mcL (4.63-6.08); Red Cell Distribution Width 15.4 % (11.5-14.5); WBC 7.1 K/mcL (4.5-11.0)
[2024-03-03 07:06] LABS: ALT/SGPT 26 U/L (<40); AST/SGOT 38 U/L (<40); Albumin 3.7 gm/dL (3.2-5.2); Albumin/Globulin Ratio 1.2 (1.0-2.3); Alkaline Phosphatase 93 U/L (39-117); Bilirubin,Direct 0.3 mg/dL (<0.3); Bilirubin,Total 0.6 mg/dL (0.1-1.0); Blood Urea Nitrogen 16 mg/dL (8-23); Calcium 8.7 mg/dL (8.6-10.4); Carbon Dioxide 23 mmol/L (22-30); Chloride 106 mmol/L (96-108); Glomerular Filtration Rate 90; Glucose 77 mg/dL (70-105); Lactate Dehydrogenase 179 U/L (135-225); Potassium 3.9 mmol/L (3.3-5.1); Sodium 138 mmol/L (133-145); Triglycerides 73 mg/dL (<150); Uric Acid 2.9 mg/dL (2.5-8.0)
[2024-03-04 07:09] LABS: ALT/SGPT 26 U/L (<40); AST/SGOT 37 U/L (<40); Albumin 3.6 gm/dL (3.2-5.2); Albumin/Globulin Ratio 1.2 (1.0-2.3); Alkaline Phosphatase 88 U/L (39-117); Bilirubin,Direct 0.3 mg/dL (<0.3); Bilirubin,Total 0.7 mg/dL (0.1-1.0); Blood Urea Nitrogen 11 mg/dL (8-23); Calcium 8.7 mg/dL (8.6-10.4); Carbon Dioxide 23 mmol/L (22-30); Chloride 108 mmol/L (96-108); Globulin 2.9 gm/dL (2.2-3.7); Glomerular Filtration Rate 90; Glucose 97 mg/dL (70-105); Lactate Dehydrogenase 151 U/L (135-225); Phosphorous 3.2 mg/dL (2.5-4.5); Potassium 3.9 mmol/L (3.3-5.1); Sodium 141 mmol/L (133-145); Triglycerides 78 mg/dL (<150); Uric Acid 2.1 mg/dL (2.5-8.0)
[2024-03-04 07:11] LABS: Basophils # (Auto) 0 K/mcL (0.00-0.30); Basophils % (Auto) 0 % (0.0-2.0); Eosinophils # (Auto) 0.01 K/mcL (0.00-0.70); Eosinophils % (Auto) 0.3 % (0.0-7.0); Hematocrit 30.5 % (40.1-51.0); Hemoglobin 9.7 g/dL (13.7-17.5); Lymphocytes # (Auto) 1.37 K/mcL (1.50-4.80); Lymphocytes % (Auto) 38.1 % (15.5-49.0); Mean Cell Volume 94.7 fL (80.0-100.0); Mean Corpuscular HGB Conc 31.8 g/dL (31.0-36.0); Mean Platelet Volume 9.9 fL (8.8-12.5); Monocytes # (Auto) 0.25 K/mcL (0.10-0.90); Monocytes % (Auto) 6.9 % (1.0-12.0); Neutrophils % (Auto) 54.1 % (38.0-78.0); Platelet Count 59 K/mcL (140-440); RBC 3.22 M/mcL (4.63-6.08); Red Cell Distribution Width 15.4 % (11.5-14.5); WBC 3.6 K/mcL (4.5-11.0)
[2024-03-04] MEDS ORDERED: SCOPOLAMINE 1 PATCH PATCH TOPICAL PRN (11:00)
[2024-03-04] MEDS ORDERED: IPRATROPIUM/ALBUTEROL 3 ML AMPUL.NEB NEB PRN ×2 (11:00→13:06)
[2024-03-04] MEDS ORDERED: ONDANSETRON 4 MG/2 ML VIAL ONE (11:07)
[2024-03-04] MEDS ORDERED: GLYCOPYRROLATE 0.2 MG/ML VIAL IV ONE (11:07)
[2024-03-04] MEDS ORDERED: DEXAMETHASONE 10 MG/ML VIAL ONE (11:07)
[2024-03-04] MEDS ORDERED: fentaNYL 100 MCG/2 ML VIAL ONE (11:07)
[2024-03-04] MEDS ORDERED: SUGAMMADEX SODIUM 200 MG/2 ML VIAL IV ONE (11:07)
[2024-03-04] MEDS ORDERED: PROPOFOL 200 MG/20 ML VIAL IV ONE (11:07)
[2024-03-04] MEDS ORDERED: ROCURONIUM 10 MG/ML ML IV ONE (11:11)
[2024-03-04] MEDS ORDERED: KETAMINE 50 MG/ML Syringe IV ONE (12:18)
[2024-03-04] MEDS ORDERED: MAGNESIUM SULFATE 2 GM/50 ML BAG IV ONE (12:47)
[2024-03-04] MEDS ORDERED: HYDROmorphone 0.5 MG/0.5 ML SYRINGE ONE (13:19)
[2024-03-04] MEDS: ACETAMINOPHEN 1,000 MG/100 ML BAG IV ONE (13:47)
[2024-03-04] MEDS: fentaNYL 100 MCG/2 ML VIAL IV PRN (13:55)
[2024-03-04] MEDS: LACTATED RINGERS 1,000 ML IV SCH (14:39)
[2024-03-04] MEDS: morphine 2 MG/ML VIAL IV PRN (17:18)
[2024-03-04] MEDS: POLYETHYLENE GLYCOL 3350 17 GM PACKET PO PRN (19:14)
[2024-03-05 12:26] LABS: Basophils # (Auto) 0.01 K/mcL (0.00-0.30); Basophils % (Auto) 0.1 % (0.0-2.0); Eosinophils # (Auto) 0 K/mcL (0.00-0.70); Eosinophils % (Auto) 0 % (0.0-7.0); Hematocrit 30.5 % (40.1-51.0); Hemoglobin 9.9 g/dL (13.7-17.5); Lymphocytes # (Auto) 0.74 K/mcL (1.50-4.80); Lymphocytes % (Auto) 7.1 % (15.5-49.0); Mean Cell Volume 93.3 fL (80.0-100.0); Mean Corpuscular HGB Conc 32.5 g/dL (31.0-36.0); Mean Platelet Volume 9.4 fL (8.8-12.5); Monocytes # (Auto) 0.69 K/mcL (0.10-0.90); Monocytes % (Auto) 6.6 % (1.0-12.0); Neutrophils % (Auto) 85.7 % (38.0-78.0); Platelet Count 74 K/mcL (140-440); RBC 3.27 M/mcL (4.63-6.08); Red Cell Distribution Width 15.1 % (11.5-14.5); WBC 10.4 K/mcL (4.5-11.0)
[2024-03-05 12:44] LABS: ALT/SGPT 31 U/L (<40); AST/SGOT 47 U/L (<40); Albumin 3.9 gm/dL (3.2-5.2); Albumin/Globulin Ratio 1.3 (1.0-2.3); Alkaline Phosphatase 90 U/L (39-117); Bilirubin,Direct 0.3 mg/dL (<0.3); Bilirubin,Total 0.9 mg/dL (0.1-1.0); Blood Urea Nitrogen 11 mg/dL (8-23); Calcium 8.9 mg/dL (8.6-10.4); Carbon Dioxide 24 mmol/L (22-30); Chloride 102 mmol/L (96-108); Globulin 3.1 gm/dL (2.2-3.7); Glomerular Filtration Rate 85; Glucose 161 mg/dL (70-105); Lactate Dehydrogenase 198 U/L (135-225); Phosphorous 2.6 mg/dL (2.5-4.5); Potassium 3.8 mmol/L (3.3-5.1); Sodium 136 mmol/L (133-145); Triglycerides 87 mg/dL (<150); Uric Acid 1.7 mg/dL (2.5-8.0)
[2024-03-05] MEDS: oxyCODONE IR 5 MG TABLET PO PRN (13:55)
[2024-03-05] MEDS: OMEPRAZOLE 20 MG CAPSULE PO SCH (13:55)
[2024-03-05] MEDS: ONDANSETRON 4 MG/2 ML VIAL IV PRN (23:44)
[2024-03-06] MEDS: METOCLOPRAMIDE 10 MG/2 ML VIAL IV SCH (08:21)
[2024-03-06] MEDS: MAGNESIUM HYDROXIDE 30 ML ORAL.SUSP PO ONE (08:21)
[2024-03-06 09:36] LABS: Basophils # (Auto) 0.02 K/mcL (0.00-0.30); Basophils % (Auto) 0.2 % (0.0-2.0); Eosinophils # (Auto) 0 K/mcL (0.00-0.70); Eosinophils % (Auto) 0 % (0.0-7.0); Hemoglobin 9.8 g/dL (13.7-17.5); Lymphocytes # (Auto) 1.28 K/mcL (1.50-4.80); Lymphocytes % (Auto) 13.6 % (15.5-49.0); Mean Cell Volume 95.1 fL (80.0-100.0); Mean Corpuscular HGB Conc 31.6 g/dL (31.0-36.0); Mean Platelet Volume 9.7 fL (8.8-12.5); Monocytes # (Auto) 0.87 K/mcL (0.10-0.90); Monocytes % (Auto) 9.2 % (1.0-12.0); Neutrophils % (Auto) 76.7 % (38.0-78.0); Platelet Count 60 K/mcL (140-440); RBC 3.26 M/mcL (4.63-6.08); Red Cell Distribution Width 15.6 % (11.5-14.5); WBC 9.4 K/mcL (4.5-11.0)
[2024-03-06 09:52] LABS: ALT/SGPT 25 U/L (<40); AST/SGOT 35 U/L (<40); Albumin 3.6 gm/dL (3.2-5.2); Albumin/Globulin Ratio 1.2 (1.0-2.3); Alkaline Phosphatase 80 U/L (39-117); Bilirubin,Total 0.9 mg/dL (0.1-1.0); Blood Urea Nitrogen 11 mg/dL (8-23); Calcium 8.9 mg/dL (8.6-10.4); Carbon Dioxide 27 mmol/L (22-30); Chloride 101 mmol/L (96-108); Glomerular Filtration Rate 85; Glucose 164 mg/dL (70-105); Potassium 3.7 mmol/L (3.3-5.1); Sodium 137 mmol/L (133-145)
[2024-03-06] MEDS: POLYETHYLENE GLYCOL 3350 17 GM PACKET PO SCH (17:24)
[2024-03-07] MEDS: MAGNESIUM CITRATE 300 ML ORAL.SOL PO SCH (14:09)
[2024-03-08 06:56] LABS: Basophils # (Auto) 0.01 K/mcL (0.00-0.30); Basophils % (Auto) 0.1 % (0.0-2.0); Eosinophils # (Auto) 0.03 K/mcL (0.00-0.70); Eosinophils % (Auto) 0.4 % (0.0-7.0); Hemoglobin 8.5 g/dL (13.7-17.5); Lymphocytes # (Auto) 0.76 K/mcL (1.50-4.80); Lymphocytes % (Auto) 11.2 % (15.5-49.0); Mean Cell Volume 96.1 fL (80.0-100.0); Mean Corpuscular HGB Conc 31.5 g/dL (31.0-36.0); Mean Platelet Volume 10.2 fL (8.8-12.5); Monocytes # (Auto) 0.55 K/mcL (0.10-0.90); Monocytes % (Auto) 8.1 % (1.0-12.0); Neutrophils % (Auto) 79.8 % (38.0-78.0); Platelet Count 65 K/mcL (140-440); RBC 2.81 M/mcL (4.63-6.08); Red Cell Distribution Width 15.7 % (11.5-14.5); WBC 6.8 K/mcL (4.5-11.0)
[2024-03-08 07:02] LABS: ALT/SGPT 23 U/L (<40); AST/SGOT 35 U/L (<40); Albumin 3.1 gm/dL (3.2-5.2); Albumin/Globulin Ratio 1.1 (1.0-2.3); Alkaline Phosphatase 83 U/L (39-117); Bilirubin,Direct 0.4 mg/dL (<0.3); Bilirubin,Total 0.9 mg/dL (0.1-1.0); Blood Urea Nitrogen 7 mg/dL (8-23); Calcium 8.4 mg/dL (8.6-10.4); Carbon Dioxide 27 mmol/L (22-30); Chloride 103 mmol/L (96-108); Globulin 2.8 gm/dL (2.2-3.7); Glomerular Filtration Rate 90; Glucose 115 mg/dL (70-105); Lactate Dehydrogenase 162 U/L (135-225); Phosphorous 1.8 mg/dL (2.5-4.5); Potassium 3.6 mmol/L (3.3-5.1); Sodium 137 mmol/L (133-145); Triglycerides 89 mg/dL (<150); Uric Acid 1.4 mg/dL (2.5-8.0)
[2024-03-08] MEDS: TAMSULOSIN 0.4 MG CAPSULE PO SCH (08:32)
[2024-03-08] MEDS: METOPROLOL SUCCINATE 50 MG TAB.XL.24H PO SCH (08:32)
[2024-03-08] MEDS: TRANEXAMIC ACID 1,000 MG/10 ML VIAL IV ONE (11:14)
[2024-03-08] MEDS ORDERED: IOPAMIDOL 100 ML BOTTLE IV ONE (12:19)
[2024-03-08 15:06] LABS: INR 1.3 (0.9-1.1); Prothrombin Time 16.7 sec (11.9-14.5)
[2024-03-08] MEDS: PYRIDOSTIGMINE BROMIDE 10 MG/2 ML AMPUL IV SCH (15:12)
[2024-03-08 16:48] LABS: Hematocrit 28.1 % (40.1-51.0); Hemoglobin 8.7 g/dL (13.7-17.5)
[2024-03-08] MEDS: 0.9 % SODIUM CHLORIDE 250 ML IV SCH ×3 (18:03→23:05)
[2024-03-09] MEDS: 0.9 % SODIUM CHLORIDE 250 ML IV SCH ×3 (01:38→14:23)
[2024-03-09 06:30] LABS: ALT/SGPT 24 U/L (<40); AST/SGOT 34 U/L (<40); Albumin 2.9 gm/dL (3.2-5.2); Albumin/Globulin Ratio 1.1 (1.0-2.3); Alkaline Phosphatase 84 U/L (39-117); Bilirubin,Direct 0.4 mg/dL (<0.3); Bilirubin,Total 0.8 mg/dL (0.1-1.0); Blood Urea Nitrogen 7 mg/dL (8-23); Calcium 8.3 mg/dL (8.6-10.4); Carbon Dioxide 24 mmol/L (22-30); Chloride 101 mmol/L (96-108); Globulin 2.7 gm/dL (2.2-3.7); Glomerular Filtration Rate 90; Glucose 127 mg/dL (70-105); Lactate Dehydrogenase 164 U/L (135-225); Phosphorous 1.7 mg/dL (2.5-4.5); Potassium 3.5 mmol/L (3.3-5.1); Sodium 134 mmol/L (133-145); Triglycerides 94 mg/dL (<150); Uric Acid 1.5 mg/dL (2.5-8.0)
[2024-03-09 06:55] LABS: Basophils # (Auto) 0 K/mcL (0.00-0.30); Basophils % (Auto) 0 % (0.0-2.0); Eosinophils # (Auto) 0.01 K/mcL (0.00-0.70); Eosinophils % (Auto) 0.1 % (0.0-7.0); Hematocrit 24.4 % (40.1-51.0); Hemoglobin 7.8 g/dL (13.7-17.5); Lymphocytes # (Auto) 0.66 K/mcL (1.50-4.80); Lymphocytes % (Auto) 9.7 % (15.5-49.0); Mean Cell Volume 96.4 fL (80.0-100.0); Monocytes # (Auto) 0.63 K/mcL (0.10-0.90); Monocytes % (Auto) 9.2 % (1.0-12.0); Neutrophils % (Auto) 80.7 % (38.0-78.0); Platelet Count 95 K/mcL (140-440); RBC 2.53 M/mcL (4.63-6.08); Red Cell Distribution Width 15.7 % (11.5-14.5); WBC 6.8 K/mcL (4.5-11.0)
[2024-03-09] MEDS: PYRIDOSTIGMINE BROMIDE 10 MG/2 ML AMPUL IV SCH (14:58)
[2024-03-09] MEDS: FUROSEMIDE 40 MG/4 ML VIAL IV ONE (14:58)
[2024-03-10 06:41] LABS: INR 1.2 (0.9-1.1); Prothrombin Time 16.1 sec (11.9-14.5)
[2024-03-10 06:50] LABS: Basophils # (Auto) 0.01 K/mcL (0.00-0.30); Basophils % (Auto) 0.1 % (0.0-2.0); Eosinophils # (Auto) 0.02 K/mcL (0.00-0.70); Eosinophils % (Auto) 0.3 % (0.0-7.0); Hematocrit 30.1 % (40.1-51.0); Hemoglobin 9.7 g/dL (13.7-17.5); Lymphocytes # (Auto) 1.16 K/mcL (1.50-4.80); Lymphocytes % (Auto) 15.7 % (15.5-49.0); Mean Cell Volume 94.7 fL (80.0-100.0); Mean Corpuscular HGB Conc 32.2 g/dL (31.0-36.0); Monocytes # (Auto) 0.78 K/mcL (0.10-0.90); Monocytes % (Auto) 10.6 % (1.0-12.0); Neutrophils % (Auto) 72.8 % (38.0-78.0); Platelet Count 94 K/mcL (140-440); RBC 3.18 M/mcL (4.63-6.08); Red Cell Distribution Width 16.3 % (11.5-14.5); WBC 7.4 K/mcL (4.5-11.0)
[2024-03-10 06:55] LABS: ALT/SGPT 24 U/L (<40); AST/SGOT 38 U/L (<40); Alkaline Phosphatase 93 U/L (39-117); Bilirubin,Direct 0.5 mg/dL (<0.3); Bilirubin,Total 1.2 mg/dL (0.1-1.0); Blood Urea Nitrogen 7 mg/dL (8-23); Calcium 8.5 mg/dL (8.6-10.4); Carbon Dioxide 27 mmol/L (22-30); Chloride 98 mmol/L (96-108); Globulin 3.1 gm/dL (2.2-3.7); Glomerular Filtration Rate 90; Glucose 120 mg/dL (70-105); Lactate Dehydrogenase 186 U/L (135-225); Phosphorous 2.5 mg/dL (2.5-4.5); Potassium 3.1 mmol/L (3.3-5.1); Sodium 134 mmol/L (133-145); Triglycerides 107 mg/dL (<150); Uric Acid 1.4 mg/dL (2.5-8.0)
[2024-03-10] MEDS: SIMETHICONE 80 MG TAB.CHEW CHEWED SCH (12:17)
[2024-03-10] MEDS: PYRIDOSTIGMINE 60 MG TABLET PO SCH (14:34)
[2024-03-10] MEDS: HYDROcodone/APAP 10/325MG TABLET PO PRN (22:40)
[2024-03-11 05:52] LABS: Basophils # (Auto) 0.02 K/mcL (0.00-0.30); Basophils % (Auto) 0.2 % (0.0-2.0); Eosinophils # (Auto) 0.03 K/mcL (0.00-0.70); Eosinophils % (Auto) 0.3 % (0.0-7.0); Hematocrit 32.7 % (40.1-51.0); Hemoglobin 10.5 g/dL (13.7-17.5); Lymphocytes # (Auto) 1.23 K/mcL (1.50-4.80); Lymphocytes % (Auto) 12.3 % (15.5-49.0); Mean Cell Volume 94.8 fL (80.0-100.0); Mean Corpuscular HGB Conc 32.1 g/dL (31.0-36.0); Monocytes # (Auto) 1.17 K/mcL (0.10-0.90); Monocytes % (Auto) 11.7 % (1.0-12.0); Neutrophils % (Auto) 75.2 % (38.0-78.0); Platelet Count 79 K/mcL (140-440); RBC 3.45 M/mcL (4.63-6.08)
[2024-03-11] MEDS: POTASSIUM CHLORIDE 20 MEQ TABLET PO SCH (17:02)
[2024-03-12 06:13] LABS: Basophils # (Auto) 0.01 K/mcL (0.00-0.30); Basophils % (Auto) 0.1 % (0.0-2.0); Eosinophils # (Auto) 0.01 K/mcL (0.00-0.70); Eosinophils % (Auto) 0.1 % (0.0-7.0); Hematocrit 33.3 % (40.1-51.0); Hemoglobin 10.7 g/dL (13.7-17.5); Lymphocytes # (Auto) 1.37 K/mcL (1.50-4.80); Lymphocytes % (Auto) 17.2 % (15.5-49.0); Mean Cell Volume 94.3 fL (80.0-100.0); Mean Corpuscular HGB Conc 32.1 g/dL (31.0-36.0); Mean Platelet Volume 9.5 fL (8.8-12.5); Monocytes # (Auto) 0.84 K/mcL (0.10-0.90); Monocytes % (Auto) 10.5 % (1.0-12.0); Neutrophils % (Auto) 71.6 % (38.0-78.0); Platelet Count 65 K/mcL (140-440); RBC 3.53 M/mcL (4.63-6.08); Red Cell Distribution Width 15.7 % (11.5-14.5)
[2024-03-12 06:37] LABS: ALT/SGPT 33 U/L (<40); AST/SGOT 49 U/L (<40); Albumin/Globulin Ratio 0.9 (1.0-2.3); Alkaline Phosphatase 115 U/L (39-117); Bilirubin,Direct 0.4 mg/dL (<0.3); Blood Urea Nitrogen 9 mg/dL (8-23); Calcium 8.8 mg/dL (8.6-10.4); Carbon Dioxide 25 mmol/L (22-30); Chloride 98 mmol/L (96-108); Globulin 3.3 gm/dL (2.2-3.7); Glomerular Filtration Rate 90; Glucose 131 mg/dL (70-105); Lactate Dehydrogenase 183 U/L (135-225); Phosphorous 2.8 mg/dL (2.5-4.5); Sodium 132 mmol/L (133-145); Triglycerides 119 mg/dL (<150); Uric Acid 1.2 mg/dL (2.5-8.0)
[2024-03-12] MEDS ORDERED: POLYETHYLENE GLYCOL 3350 17 GM PACKET PO SCH (14:30)
[2024-03-12] MEDS: POLYETHYLENE GLYCOL 3350 17 GM PACKET PO SCH (14:35)
[2024-03-13 06:10] LABS: Basophils # (Auto) 0.01 K/mcL (0.00-0.30); Basophils % (Auto) 0.1 % (0.0-2.0); Eosinophils # (Auto) 0.02 K/mcL (0.00-0.70); Eosinophils % (Auto) 0.2 % (0.0-7.0); Hematocrit 32.3 % (40.1-51.0); Hemoglobin 10.8 g/dL (13.7-17.5); Lymphocytes # (Auto) 1.31 K/mcL (1.50-4.80); Lymphocytes % (Auto) 15.8 % (15.5-49.0); Mean Corpuscular HGB Conc 33.4 g/dL (31.0-36.0); Mean Platelet Volume 9.9 fL (8.8-12.5); Monocytes # (Auto) 0.96 K/mcL (0.10-0.90); Monocytes % (Auto) 11.6 % (1.0-12.0); Neutrophils % (Auto) 71.8 % (38.0-78.0); Platelet Count 56 K/mcL (140-440); RBC 3.51 M/mcL (4.63-6.08); Red Cell Distribution Width 15.3 % (11.5-14.5); WBC 8.3 K/mcL (4.5-11.0)
[2024-03-13 06:27] LABS: INR 1.1 (0.9-1.1); Prothrombin Time 14.8 sec (11.9-14.5)
[2024-03-13 06:41] LABS: ALT/SGPT 29 U/L (<40); AST/SGOT 37 U/L (<40); Albumin 3.1 gm/dL (3.2-5.2); Albumin/Globulin Ratio 0.9 (1.0-2.3); Alkaline Phosphatase 129 U/L (39-117); Bilirubin,Direct 0.4 mg/dL (<0.3); Bilirubin,Total 0.9 mg/dL (0.1-1.0); Blood Urea Nitrogen 11 mg/dL (8-23); Calcium 8.6 mg/dL (8.6-10.4); Carbon Dioxide 23 mmol/L (22-30); Chloride 98 mmol/L (96-108); Globulin 3.6 gm/dL (2.2-3.7); Glomerular Filtration Rate 90; Glucose 134 mg/dL (70-105); Lactate Dehydrogenase 161 U/L (135-225); Phosphorous 2.6 mg/dL (2.5-4.5); Potassium 4.7 mmol/L (3.3-5.1); Sodium 130 mmol/L (133-145); Triglycerides 128 mg/dL (<150); Uric Acid 1.4 mg/dL (2.5-8.0)
[2024-03-14 06:25] LABS: Basophils # (Auto) 0.02 K/mcL (0.00-0.30); Basophils % (Auto) 0.3 % (0.0-2.0); Eosinophils # (Auto) 0.02 K/mcL (0.00-0.70); Eosinophils % (Auto) 0.3 % (0.0-7.0); Hematocrit 33.4 % (40.1-51.0); Lymphocytes # (Auto) 1.22 K/mcL (1.50-4.80); Lymphocytes % (Auto) 15.8 % (15.5-49.0); Mean Corpuscular HGB Conc 32.9 g/dL (31.0-36.0); Mean Platelet Volume 10.6 fL (8.8-12.5); Monocytes # (Auto) 0.99 K/mcL (0.10-0.90); Monocytes % (Auto) 12.8 % (1.0-12.0); Neutrophils % (Auto) 70.3 % (38.0-78.0); Platelet Count 59 K/mcL (140-440); RBC 3.63 M/mcL (4.63-6.08); Red Cell Distribution Width 15.4 % (11.5-14.5); WBC 7.7 K/mcL (4.5-11.0)
== END 2024-03-14 15:05 | DRG 418 ==
LOC: ED 15:01 → MEDSUR 21:27 → INTOOBSV 21:27
PROVIDERS: ADMIT Family Medicine Adult Medicine; ATTEND Family Medicine Adult Medicine

== ENCOUNTER 2025-03-15 10:46 | Inpatient (IN) ==
[2025-03-15 16:11] LABS: Basophils # (Auto) 0.01 K/mcL (0.00-0.30); Basophils % (Auto) 0.2 % (0.0-2.0); Eosinophils # (Auto) 0.05 K/mcL (0.00-0.70); Eosinophils % (Auto) 0.9 % (0.0-7.0); Hematocrit 29.1 % (40.1-51.0); Hemoglobin 9.4 g/dL (13.7-17.5); Lymphocytes # (Auto) 1.35 K/mcL (1.50-4.80); Lymphocytes % (Auto) 24.2 % (15.5-49.0); Mean Corpuscular HGB Conc 32.3 g/dL (31.0-36.0); Monocytes # (Auto) 0.82 K/mcL (0.10-0.90); Monocytes % (Auto) 14.7 % (1.0-12.0); Neutrophils % (Auto) 59.1 % (38.0-78.0); Platelet Count 81 K/mcL (140-440); RBC 2.96 M/mcL (4.63-6.08); WBC 5.6 K/mcL (4.5-11.0)
[2025-03-15 16:40] LABS: ALT/SGPT 15 U/L (<40); AST/SGOT 18 U/L (<40); Albumin 3.7 gm/dL (3.2-5.2); Albumin/Globulin Ratio 1.3 (1.0-2.3); Alkaline Phosphatase 73 U/L (39-117); Anion Gap 7.0 (8.0-16.0); Bilirubin,Total 0.8 mg/dL (0.1-1.0); Blood Urea Nitrogen 19 mg/dL (8-23); Calcium 8.7 mg/dL (8.6-10.4); Carbon Dioxide 26 mmol/L (22-30); Chloride 102 mmol/L (96-108); Globulin 2.9 gm/dL (2.2-3.7); Glucose 125 mg/dL (70-105); Potassium 4.1 mmol/L (3.3-5.1); Sodium 135 mmol/L (133-145)
[2025-03-15] MEDS: HYDROcodone/APAP 10/325MG TABLET PO PRN (19:46)
[2025-03-15] MEDS: KETOROLAC 15 MG/ML VIAL IV PRN (19:56)
[2025-03-15] MEDS: SENNOSIDES 1 TABLET PO SCH (23:29)
[2025-03-15] MEDS: 0.9 % SODIUM CHLORIDE 10 ML SYRINGE IV SCH (23:30)
[2025-03-16 06:02] LABS: Basophils # (Auto) 0.02 K/mcL (0.00-0.30); Basophils % (Auto) 0.5 % (0.0-2.0); Eosinophils # (Auto) 0.03 K/mcL (0.00-0.70); Eosinophils % (Auto) 0.7 % (0.0-7.0); Hematocrit 28.2 % (40.1-51.0); Hemoglobin 9.1 g/dL (13.7-17.5); Lymphocytes # (Auto) 1.31 K/mcL (1.50-4.80); Lymphocytes % (Auto) 31.0 % (15.5-49.0); Mean Corpuscular HGB Conc 32.3 g/dL (31.0-36.0); Monocytes # (Auto) 0.56 K/mcL (0.10-0.90); Monocytes % (Auto) 13.3 % (1.0-12.0); Neutrophils % (Auto) 53.3 % (38.0-78.0); Platelet Count 81 K/mcL (140-440); RBC 2.84 M/mcL (4.63-6.08); WBC 4.2 K/mcL (4.5-11.0)
[2025-03-16 06:50] LABS: Estimated Average Glucose(eAG) 140 mg/dL; Hemoglobin A1C 6.5 % Hgb (4.0-6.0)
[2025-03-16] MEDS: TAMSULOSIN 0.4 MG CAPSULE PO SCH (08:32)
[2025-03-16] MEDS: ACETAMINOPHEN 500 MG TABLET PO PRN (08:33)
[2025-03-16] MEDS: ENOXAPARIN 40 MG/0.4 ML SYRINGE SQ SCH (08:34)
[2025-03-16] MEDS: ASPIRIN 81 MG TAB.CHEW PO SCH (08:34)
[2025-03-16] MEDS: METOPROLOL SUCCINATE 25 MG TAB.XL.24H PO SCH (08:34)
[2025-03-16] MEDS ORDERED: HYDROmorphone 0.5 MG/0.5 ML SYRINGE IV PRN (10:00)
[2025-03-17 06:31] LABS: Basophils # (Auto) 0.01 K/mcL (0.00-0.30); Basophils % (Auto) 0.2 % (0.0-2.0); Eosinophils # (Auto) 0.02 K/mcL (0.00-0.70); Eosinophils % (Auto) 0.4 % (0.0-7.0); Hematocrit 29.1 % (40.1-51.0); Hemoglobin 9.3 g/dL (13.7-17.5); Lymphocytes # (Auto) 1.15 K/mcL (1.50-4.80); Lymphocytes % (Auto) 23.0 % (15.5-49.0); Mean Corpuscular HGB Conc 32.0 g/dL (31.0-36.0); Monocytes # (Auto) 0.49 K/mcL (0.10-0.90); Monocytes % (Auto) 9.8 % (1.0-12.0); Neutrophils % (Auto) 65.6 % (38.0-78.0); Platelet Count 94 K/mcL (140-440); RBC 2.95 M/mcL (4.63-6.08); WBC 5.0 K/mcL (4.5-11.0)
[2025-03-17] MEDS: ONDANSETRON 4 MG/2 ML VIAL IV PRN (08:18)
[2025-03-17] MEDS: CALCIUM CARBONATE 500 MG TAB.CHEW CHEWED PRN (10:36)
[2025-03-18 07:14] VITALS: TEMP 97.6; O2SAT 97
== END 2025-03-18 10:36 | disposition home or self-care (01) | DRG 536 ==
LOC: ED 10:46 → MEDSUR 18:46
PROVIDERS: ADMIT Internal Medicine; ATTEND Internal Medicine